=== PATIENT | male | born 1995 ===

== ENCOUNTER 2017-02-01 15:54 | Emergency (ER) | payer MEDICAID | END 2017-02-01 16:08 | disposition left against medical advice (07) | LOC: ED 15:54 → MERGE 15:54 → ED 16:08 | DX: Z02.89 Encounter for other administrative examinations (principal); R07.9 Chest pain, unspecified ==

== ENCOUNTER 2017-02-19 01:09 | Emergency (ER) | payer MEDICAID ==
[2017-02-19 01:35] VITALS: BMI 25.8
[2017-02-19 01:36] VITALS: BP 157/56; PULSE 64; RESP 15; TEMP 98; O2SAT 100
--- NOTE | 2017-02-19 02:13 | ED PDOC ---
Arrival/HPI - General Chief Complaint: Trauma Time Seen by Provider: 02/19/17 01:40 Historian: Patient - History of Present Illness Narrative History of Present Illness (Text): 02/19/17 02:08 Jean Paul Alejandro is a 21 year old male, with no significant past medical history, who presents to the Emergency department status post witnessed syncopal episode after standing up 1 hour prior to arrival. Syncopal episode witnessed by sister who states patient was unconscious for approximately 2 minutes and denies any seizure-like activity. Patient denies any substance abuse, vision changes, headache, dizziness, shortness of breath, chest pain, or any other complaints. Time/Duration: 1 hour Severity Level: Mild Activities at Onset: Rest, Light Context: Home Past Medical History - Provider Review Nursing Documentation Reviewed: Yes - Infectious Disease Hx of Infectious Diseases: None - Cardiac Hx Cardiac Disorders: No - Pulmonary Hx Asthma: Yes (in childhood) - Musculoskeletal/Rheumatological Hx Falls: No - Psychiatric Hx Substance Use: No (denies) - Anesthesia Hx Anesthesia: No Family/Social History - Physician Review Nursing Documentation Reviewed: Yes Family/Social History: No Known Family HX Smoking Status: Heavy Smoker > 10 Cigarettes Daily Hx Alcohol Use: No (denies) Hx Substance Use: No (denies) Allergies/Home Meds Allergies/Adverse Reactions: Allergies No Known Allergies Allergy (Verified 02/19/17 01:35) Home Medications: Home Meds Medication Instructions Recorded Confirmed No Known Home Med 02/19/17 02/19/17 Physical Exam - Physical Exam Narrative Physical Exam (Text): - Review of Systems Constitutional: Normal. absent: Fatigue, Weight Change, Fevers Eyes: Normal ENT: Normal Respiratory: Normal absent: SOB, Cough, Sputum Cardiovascular: +syncope absent: Chest pain, Palpitations Gastrointestinal: Normal absent: Abdominal pain, Diarrhea, Nausea, Vomiting Genitourinary: Normal. absent: Dysuria, Frequency, Hematuria Musculoskeletal: Normal. absent: Arthralgias, Back Pain, Neck Pain Skin: Normal Neurological: Normal absent: Focal Weakness Endocrine: Normal Hemo/Lymphatic: Normal Psychiatric: Normal - Physical exam Patient appears age appropriate, speaking full sentences without difficulty. Head atraumatic. No nasal bone deformity or tenderness, no facial or jaw pain/ swelling. No neck midline tenderness, thoracic and lumbar spine with no midline tenderness. Pt moving b/l upper and lower extremities without difficulty, 5/5 strength, with full active and passive ROM. Distal neurovasc fully intact. Abd soft/nt/nd, no hematomas, no peritoneal signs. Neg. pelvic rock. - Systems Exam Head: Present: Atraumatic, Normocephalic Pupils: Present: PERRL Extraocular Muscles: Present: EOMI Conjunctiva: Present: Normal Mouth: Present: Moist Mucous Membranes Neck: Present: Normal Range of Motion. No: MIDLINE TENDERNESS, Paraspinal Tenderness Respiratory/Chest: Present: Clear to Auscultation, Good Air Exchange. No: Respiratory Distress, Accessory Muscle Use, Tachypneic Cardiovascular: Present: Regular Rate and Rhythm, Normal S1, S2, Peripheral Pulses Present. No: Murmurs Abdomen: Present: Normal Bowel Sounds, No: Tenderness, Peritoneal Signs, Rebound, Guarding, Distention Back: Present: Normal Inspection. No: Midline Tenderness, Paraspinal Tenderness Upper Extremity: Present: Normal Inspection. No: Cyanosis, Edema Lower Extremity: Present: Normal Inspection. No: Edema Neurological: Present: GCS=15, Speech Normal, cranial nerves II through XII fully intact with no cerebellar abnormality, neuro-sensory fully intact. No focal neurological deficits. Skin: Present: Warm, Dry, Normal Color. No: Rashes Psychiatric: Present: Alert, Oriented x 3, Normal Insight, Normal Concentration Vital Signs Reviewed: Yes Vital Signs Temp Pulse Resp BP Pulse Ox 02/19/17 01:36 98 F 64 15 157/56 H 100 Temperature: Afebrile Blood Pressure: Normal Pulse: Regular Respiratory Rate: Normal Appearance: Positive for: Well-Appearing, Non-Toxic, Comfortable Pain Distress: None Mental Status: Positive for: Alert and Oriented X 3 Medical Decision Making ED Course and Treatment: 02/19/17 02:08 Impression: 21 year old male s/p witnessed syncopal episodes. Differential Diagnosis include but are not limited to: sycnope Plan: -- EKG -- Reassess and disposition Prior Visits: Notes and results from previous visits were reviewed. On 01/08/17, Brain MRI showed no acute pathology, Head CT on 01/07/17 showed no acute pathology, echocardiogram on 01/08/17 showed no acute findings. Pt was evaluated by neurologist, Dr. Granda, on 01/08/2017 for recurrent syncopal episodes. Progress Notes: EKG: Ordered, reviewed, and independently interpreted the EKG. Rate : 55 BPM Rhythm : Sinus bradycardia Interpretation : No ST-segment elevations or depressions, no T-wave inversions, normal intervals. Comparison : No acute change from previous EKG from 02/18/2017. 02/19/17 02:57 On re-evaluation, the patient feels better and is in no acute distress. I have discussed the results and plan with the patient, who expresses understanding. Patient in agreement with plan to discharged home. Patient is stable for discharge. Patient was instructed to follow up with physician/clinic in 1-2 days or return if symptoms worsen or new concerning symptoms arise. - EKG Interpretation Interpreted by ED Physician: Yes Type: 12 lead EKG Comparison: Com.w/previous EKG - Medication Orders Current Medication Orders: Discontinued Medications Acetaminophen (Tylenol 325mg Tab) Confirm Administered Dose 650 mg .ROUTE .STK- MED ONE Stop: 02/19/17 02:25 Last Admin: 02/19/17 02:29 Dose: 650 mg - Scribe Statement The provider has reviewed the documentation as recorded by the Scribronald Hargrove All medical record entries made by the Darrickibronald were at my direction and personally dictated by me. I have reviewed the chart and agree that the record accurately reflects my personal performance of the history, physical exam, medical decision making, and the department course for this patient. I have also personally directed, reviewed, and agree with the discharge instructions and disposition. Disposition/Present on Arrival - Present on Arrival Any Indicators Present on Arrival: No History of DVT/PE: No History of Uncontrolled Diabetes: No Urinary Catheter: No History of Decub. Ulcer: No History Surgical Site Infection Following: None - Disposition Have Diagnosis and Disposition been Completed?: Yes Diagnosis: Syncope Disposition: HOME/ ROUTINE Disposition Time: 02:57 Patient Plan: Discharge Condition: GOOD Discharge Instructions (ExitCare): Syncope (ED) Additional Instructions: PLEASE RETURN TO THE EMERGENCY DEPARTMENT FOR NEW OR WORSENING SYMPTOMS. RETURN RIGHT AWAY IF YOU CANNOT FOLLOW UP WITH YOUR PRIMARY CARE DOCTOR, CLINIC, OR SPECIALIST IN 1-2 DAYS. Referrals: PCP,NO [Primary Care Provider] - Follow up with primary Moises Workman MD [Staff Provider] - [place] up with [place] [facility] [place] [facility] [place] - Follow up with primary
--- NOTE | 2017-02-19 13:58 | CARD ---
APPROVED REPORT EKG Measurement Heart [id number] <Conclusion> Sinus bradycardia Otherwise normal ECG
== END 2017-02-19 03:08 | disposition home or self-care (01) ==
LOC: ED 01:09
DX: R55 Syncope and collapse (principal)

== ENCOUNTER 2017-03-06 03:42 | Emergency (ER) | payer MEDICAID ==
[2017-03-06 03:43] VITALS: BMI 25.8
[2017-03-06] MEDS ORDERED: Sodium Chloride 0.9% 1,000 ML IV STA (04:16)
--- NOTE | 2017-03-06 04:29 | ED PDOC ---
Arrival/HPI - General Historian: Patient <CHASE ALBERT - Last Filed: 03/06/17 06:58> <Tian Luz - Last Filed: 03/08/17 01:33> - General Chief Complaint: GI Problem Time Seen by Provider: 03/06/17 03:49 - History of Present Illness Narrative History of Present Illness (Text): 03/06/17 04:18 Mr. Alejandro is a 21 year old male who presents to the emergency department complaining of bilateral lower abdominal pain that has present for the past 3 months. He describes the pain as a bloating, pressure sensation that is rated as an 8/10. He reports urination helps alleviate his pain. Patient reports good stream but does admit to having to apply pressure to fully urinate. He denies any radiation of the pain. Associated symptoms include vomiting for the past 24 hours. He reports vomiting up to 30 or more times. He denies any coffee ground emesis, blood or clots in his vomit. He has taken an over the counter anti- nausea medication without relieve. Pt also has complaints of intermittent chest pain described as sharp pin needle sensation with intermittent radiation to his lower back. He denies any alleviating factors or reliving factors in conjunction with his chest pain. (CHASE ALBERT) Past Medical History - Provider Review Nursing Documentation Reviewed: Yes - Past History Past History: No Previous - Infectious Disease Hx of Infectious Diseases: None - Past Medical History Past Medical History: No Previous - Cardiac Hx Cardiac Disorders: No - Pulmonary Hx Asthma: Yes (in childhood) - Musculoskeletal/Rheumatological Hx Falls: No - Psychiatric Hx Substance Use: No (denies) - Anesthesia Hx Anesthesia: No <CHASE ALBERT - Last Filed: 03/06/17 06:58> - Provider Review Nursing Documentation Reviewed: Yes <Tian Luz - Last Filed: 03/08/17 01:33> Family/Social History - Physician Review Nursing Documentation Reviewed: Yes Family/Social History: CVA/TIA, CAD/[place] Smoking Status: Heavy Smoker > 10 Cigarettes Daily Hx Alcohol Use: No (denies) Hx Substance Use: No (denies) <CHASE ALBERT - Last Filed: 03/06/17 06:58> - Physician Review Nursing Documentation Reviewed: Yes Family/Social History: Unknown Family HX <Tian Luz - Last Filed: 03/08/17 01:33> Allergies/Home Meds <CHASE ALBERT - Last Filed: 03/06/17 06:58> <Tian Luz - Last Filed: 03/08/17 01:33> Allergies/Adverse Reactions: Allergies No Known Allergies Allergy (Verified 02/19/17 01:35) Home Medications: Home Meds Medication Instructions Recorded Confirmed No Known Home Med 02/19/17 03/06/17 Review of Systems - Review of Systems Constitutional: absent: Fatigue, Weight Change, Fevers, Night Sweats Respiratory: absent: SOB, Cough, Sputum, Wheezing Cardiovascular: Chest Pain. absent: Palpitations, Edema Gastrointestinal: Abdominal Pain, Nausea, Vomiting, Appetite Changes. absent: Constipation, Diarrhea, Hematochezia, Hematemesis Genitourinary Male: Frequency. absent: Dysuria, Hematuria Musculoskeletal: absent: Back Pain, Myalgias Skin: absent: Rash, Pruritis Neurological: absent: Headache, Dizziness Endocrine: Polyuria. absent: Diaphoresis <CHASE ALBERT - Last Filed: 03/06/17 06:58> - Physician Review All systems were reviewed & negative as marked: Yes <Tian Luz - Last Filed: 03/08/17 01:33> Physical Exam Vital Signs Reviewed: Yes Temperature: Afebrile Blood Pressure: Normal Pulse: Regular Respiratory Rate: Normal Appearance: Positive for: Well-Appearing Pain Distress: Mild Mental Status: Positive for: Alert and Oriented X 3 - Systems Exam Head: Present: Atraumatic, Normocephalic Pupils: Present: PERRL Extroacular Muscles: Present: EOMI Conjunctiva: Present: Normal Mouth: Present: Moist Mucous Membranes Neck: Present: Normal Range of Motion. No: JVD Respiratory/Chest: Present: Clear to Auscultation, Good Air Exchange. No: Respiratory Distress, Accessory Muscle Use Cardiovascular: Present: Regular Rate and Rhythm Abdomen: Present: Tenderness (bilateral lower abdomen), Normal Bowel Sounds. No : Distention, Peritoneal Signs Upper Extremity: Present: Normal Inspection. No: Cyanosis, Edema Lower Extremity: Present: Normal Inspection. No: Edema Neurological: Present: GCS=15, CN II-XII Intact, Speech Normal, Motor Func Grossly Intact, Normal Sensory Function Skin: Present: Warm, Dry Psychiatric: Present: Alert, Oriented x 3, Normal Insight <CHASE ALBERT - Last Filed: 03/06/17 06:58> Medical Decision Making <CHASE ALBERT - Last Filed: 03/06/17 06:58> - Lab Interpretations I have reviewed the lab results: Yes <Tian Luz - Last Filed: 03/08/17 01:33> ED Course and Treatment: 03/06/17 04:37 Impression: Mr. Alejandro is a 21 year old male complaining of lower bilateral abdominal pain that has been constant for the past 3 months. Differential Diagnosis included but are not limited to: - cystitis - interstitial cystitis - Detrusor overactivity - urinary calculi - gastroenteritis - Appendicitis Plan: - Labs: CBC, CMP, Lipase, Urinalysis, - Imaging: CT abdomen and pelvis with IV contrast only - Meds: Zofran -- Reassess and disposition Progress Notes: (CHASE ALBERT) Impression: Pt seen and evaluated with site medical director. Pt presented for intermittent lower abdominal pain for 3 months. Aware and agree with HPI, clinical findings, plan, and management. Plan: -- CT Abdomen and Pelvis with IV contrast -- Labs, lipase -- Urinalysis -- IV fluids -- Zofran -- Reassess and disposition Progress Notes: case endorsed dr ferrer sx consult and disipo 03/08/17 01:32 (Tian Luz) - Lab Interpretations Lab Results: 03/06/17 04:30 03/06/17 04:30 Lab Results 03/06/17 04:30: Sodium 143, Potassium 3.6, Chloride 101, Carbon Dioxide 29, Anion Gap 17, BUN 14, Creatinine 0.8, Est GFR ( Amer) > 60, Est GFR (Non- Af Amer) > 60, Random Glucose 107, Calcium 9.6, Total Bilirubin 1.0, AST 26, ALT 31, Alkaline Phosphatase 63, Total Protein 7.8, Albumin 4.2, Globulin 3.6, Albumin/Globulin Ratio 1.2, Lipase 34 03/06/17 04:30: WBC 5.7, RBC 4.52, Hgb 13.9 L, Hct 40.1 L, MCV 88.7, MCH 30.8, MCHC 34.7, RDW 12.1, Plt Count 205, MPV 10.7 - RAD Interpretation Radiology Orders: 03/06/17 04:16 ABD & PELVIS W/O PO OR IV CONT [CT] Stat - Medication Orders Current Medication Orders: Discontinued Medications Sodium Chloride (Sodium Chloride 0.9%) 1,000 mls @ 999 mls/hr IV .Q1H1M STA Stop: 03/06/17 05:16 Last Admin: 03/06/17 04:41 Dose: 999 mls/hr Iohexol (Omnipaque 350 100 Ml) Confirm Administered Dose 350 mg .ROUTE .STK-MED ONE Stop: 03/06/17 05:45 Ondansetron HCl (Zofran Tab) 4 mg PO STAT STA Stop: 03/06/17 04:17 Last Admin: 03/06/17 04:41 Dose: 4 mg - PA / MUSTANGER / Resident Statement LUIZA has reviewed & agrees with the documentation as recorded. / has examined the patient and agrees with the treatment plan. <CHASE ALBERT - Last Filed: 03/06/17 06:58> - PA / MUSTANGER / Resident Statement LUIZA has reviewed & agrees with the documentation as recorded. / has examined the patient and agrees with the treatment plan. <Tian Luz - Last Filed: 03/08/17 01:33> Disposition/Present on Arrival - Present on Arrival Any Indicators Present on Arrival: No History of DVT/PE: No History of Uncontrolled Diabetes: No Urinary Catheter: No History of Decub. Ulcer: No History Surgical Site Infection Following: None - Disposition Have Diagnosis and Disposition been Completed?: Yes <CHASE ALBERT - Last Filed: 03/06/17 06:58> - Present on Arrival Any Indicators Present on Arrival: No - Disposition Have Diagnosis and Disposition been Completed?: Yes Disposition Time: 07:00 <Tian Luz - Last Filed: 03/08/17 01:33> - Disposition Diagnosis: Abdominal pain Disposition: HOME/ ROUTINE Condition: STABLE Discharge Instructions (ExitCare): Abdominal Pain (ED)
[2017-03-06 04:42] LABS: HEMOGLOBIN 13.9 gm/dL (14.0-18.0); MEAN CELL VOLUME 88.7 fL (80.0-105.0); MEAN CORPUSCULAR HEMOGLOBIN 30.8 pg (25.0-35.0); MEAN CORPUSCULAR HGB CONC 34.7 g/dl (31.0-37.0); MEAN PLATELET VOLUME 10.7 fl (7.0-11.0); RBC 4.52 10^6/uL (3.5-6.1); RED CELL DISTRIBUTION WIDTH 12.1 % (11.5-14.5); WHITE BLOOD COUNT 5.7 10^3/ul (4.5-11.0)
[2017-03-06 04:53] LABS: ALB/GLOB RATIO 1.2 (1.1-1.8); ALBUMIN 4.2 g/dL (3.0-4.8); ALT/SGPT 31 U/L (7-56); AST/SGOT 26 U/L (15-59); BLOOD UREA NITROGEN 14 mg/dL (7-21); CALCIUM 9.6 mg/dL (8.4-10.5); GFR AFRICAN-AMERICAN > 60; GFR NON-AFRICAN AMERICAN > 60; LIPASE 34 U/L (23-300)
[2017-03-06] MEDS ORDERED: Iohexol 350 MG/100 ML VIAL ONE (05:44)
--- NOTE | 2017-03-06 06:49 | CT ---
EXAM: CT Abdomen and Pelvis Without Intravenous Contrast CLINICAL HISTORY: 21 years old, male; Pain; Abdominal pain; Additional info: Lower abdominal pain TECHNIQUE: Axial computed tomography images of the abdomen and pelvis without intravenous contrast. This CT exam was performed using one or more of the following dose reduction techniques: automated exposure control, adjustment of the mA and/or kV according to patient size, and/or use of iterative reconstruction technique. Coronal and sagittal reformatted images were created and reviewed. EXAM DATE/TIME: 03/06/2017 4:16 AM COMPARISON: No relevant prior studies available. FINDINGS: The liver, spleen, gallbladder and pancreas appear grossly normal on this non-contrast study. No perinephric stranding. No hydronephrosis. No obstructing calculi. The bowel appears grossly normal. The appendix is identified on coronal image 43 - 51 on axial images 102 - 113. The majority of the appendiceal lumen is filled with air however there is a portion of the distal appendix there is lack of intraluminal air as well as borderline dilation of 6 x 7 mm. There is no definite stranding in the surrounding fat. IMPRESSION: A portion of the distal appendix is mildly dilated with lack of intraluminal air. While the dilation and lack of intraluminal air could indicate early obstruction, there is no stranding in the periappendiceal fat to suggest active inflammation at this time. Wall hyperemia cannot be evaluated as intravenous contrast was not administered. Additional imaging could be performed if there is high clinical concern for appendicitis
[2017-03-06 08:14] VITALS: BP 100/59; PULSE 51; RESP 18; TEMP 98.4; O2SAT 99
--- NOTE | 2017-03-06 09:07 | ED PDOC ---
Physical Exam - Physical Exam Narrative Physical Exam (Text): Patient signed out to me at change of shift pending surgical consult. Patient presented with abdominal pain last night, CT was performed with questionable appendicitis. Surgery consulted with Dr. Love. Surgical team evaluated patient at bedside, recommend discharge with PMD follow up, no evidence of appendicitis on clinical exam. At reassessment, patient is in no acute distress. Sleeping, easily arousable, states he has no complaints at this time and would like to go home. On examination, abdomen is soft, nontender, nondistended, no rebound or guarding. Vital Signs Temp Pulse Resp BP Pulse Ox 03/06/17 08:13 98.4 F 51 L 18 100/59 L 99 03/06/17 06:28 62 17 100/57 L 98 03/06/17 03:54 97.7 F 67 18 117/57 L 98 Medical Decision Making - Lab Interpretations Lab Results: 03/06/17 04:30 03/06/17 04:30 Lab Results 03/06/17 04:30: Sodium 143, Potassium 3.6, Chloride 101, Carbon Dioxide 29, Anion Gap 17, BUN 14, Creatinine 0.8, Est GFR ( Amer) > 60, Est GFR (Non- Af Amer) > 60, Random Glucose 107, Calcium 9.6, Total Bilirubin 1.0, AST 26, ALT 31, Alkaline Phosphatase 63, Total Protein 7.8, Albumin 4.2, Globulin 3.6, Albumin/Globulin Ratio 1.2, Lipase 34 03/06/17 04:30: WBC 5.7, RBC 4.52, Hgb 13.9 L, Hct 40.1 L, MCV 88.7, MCH 30.8, MCHC 34.7, RDW 12.1, Plt Count 205, MPV 10.7 - RAD Interpretation Radiology Orders: 03/06/17 04:16 ABD & PELVIS W/O PO OR IV CONT [CT] Stat - Medication Orders Current Medication Orders: Discontinued Medications Sodium Chloride (Sodium Chloride 0.9%) 1,000 mls @ 999 mls/hr IV .Q1H1M STA Stop: 03/06/17 05:16 Last Admin: 03/06/17 04:41 Dose: 999 mls/hr Iohexol (Omnipaque 350 100 Ml) Confirm Administered Dose 350 mg .ROUTE .STK-MED ONE Stop: 03/06/17 05:45 Ondansetron HCl (Zofran Tab) 4 mg PO STAT STA Stop: 03/06/17 04:17 Last Admin: 03/06/17 04:41 Dose: 4 mg Disposition/Present on Arrival - Present on Arrival Any Indicators Present on Arrival: No History of DVT/PE: No History of Uncontrolled Diabetes: No Urinary Catheter: No History of Decub. Ulcer: No History Surgical Site Infection Following: None - Disposition Have Diagnosis and Disposition been Completed?: Yes Diagnosis: Abdominal pain Disposition: HOME/ ROUTINE Disposition Time: 09:07 Patient Plan: Discharge Patient Problems: Current Active Problems Problem Status Onset Abdominal pain Acute Condition: STABLE Discharge Instructions (ExitCare): Abdominal Pain (ED)
--- NOTE | 2017-03-06 09:15 | CP.PCM.CON ---
History of Present Illness - History of Present Illness History of Present Illness: General Surgery PGY [address] Love 21 year old M with CC of abdominal pain. Patient refused to wake up for exam and did not answer any questions. Patient was accompanied by his girlfriend to ED. According to her, he has complained of lower right abdominal pain for the past couple of days. He has been eating. She believes that his last BM was yesterday, which patient appeared to nod in agreement. Review of Systems - Review of Systems Systems not reviewed;Unavailable: Uncooperative (Patient would open his eyes, stare and refuse to answer any questions that were asked.) Past Patient History - Infectious Disease Hx of Infectious Diseases: None - Past Medical History & Family History Past Medical History?: Yes - Past Social History Smoking Status: Heavy Smoker > 10 Cigarettes Daily - CARDIAC Hx Cardiac Disorders: No - PULMONARY Hx Asthma: Yes (in childhood) - MUSCULOSKELETAL/RHEUMATOLOGICAL Hx Falls: No - PSYCHIATRIC Hx Substance Use: No (denies) - SURGICAL HISTORY Hx Surgeries: No - ANESTHESIA Hx Anesthesia: No Meds Allergies/Adverse Reactions: Allergies Allergy/AdvReac Type Severity Reaction Status Date / Time No Known Allergies Allergy Verified 02/19/17 01:35 Physical Exam - Constitutional Appears: No Acute Distress (Patient was asleep, laying in bed when the surgical team came to exam him. He awoke, rolled onto his back to allow us to exam his abdomin but refused to answer any questions. ) - GI/Abdominal Exam GI & Abdominal Exam: Soft. absent: Distended, Firm, Guarding, Rebound, Rigid, Tenderness Additional comments: Patient was not tender to soft or deep palpation in the RLQ or any portion of the abdomen. Upon palpation, the patient continued to lay quietly on his back attempting to sleep. Results - Vital Signs Recent Vital Signs: Last Vital Signs Temp 98.4 F 03/06/17 08:13 Pulse 51 L 03/06/17 08:13 Resp 18 03/06/17 08:13 BP 100/59 L 03/06/17 08:13 Pulse Ox 99 03/06/17 08:13 - Labs Result Diagrams: 03/06/17 04:30 03/06/17 04:30 Labs: Laboratory Results - last 24 hr 03/06/17 03/06/17 04:30 04:30 WBC 5.7 RBC 4.52 Hgb 13.9 L Hct 40.1 L MCV 88.7 MCH 30.8 MCHC 34.7 RDW 12.1 Plt Count 205 MPV 10.7 Sodium 143 Potassium 3.6 Chloride 101 Carbon Dioxide 29 Anion Gap 17 BUN 14 Creatinine 0.8 Est GFR ( Amer) > 60 Est GFR (Non-Af Amer) > 60 Random Glucose 107 Calcium 9.6 Total Bilirubin 1.0 AST 26 ALT 31 Alkaline Phosphatase 63 Total Protein 7.8 Albumin 4.2 Globulin 3.6 Albumin/Globulin Ratio 1.2 Lipase 34 Assessment & Plan - Assessment and Plan (Free Text) Assessment: 21 year old M with CC of abdominal pain. Plan: Patient seen and reviewed. Abdominal exam was benign. Appendicitis is not likely. Recommend PO trial and cleared to discharge. Andrey Yuan PGY 1 - Date & Time Date: 03/06/17 Time: 09:30
== END 2017-03-06 09:28 | disposition home or self-care (01) ==
LOC: ED 03:42
DX: R10.30 Lower abdominal pain, unspecified (principal)
CPT/HCPCS: 74176; 80053; 83690; 85027; 96360; 99284; J7040; Q9967